=== PATIENT | female | born 1995 | race Caucasian/White ===

== ENCOUNTER → 2016-07-26 | Outpatient (REF) | payer OTHER ==
[~2016-07-26] MED LIST: CITA20TA4 PO; SYNT50TA PO; TRINTAB PO
== END ==
LOC: M LAB REF 16:15
PROVIDERS: ATTEND Physician Assistant
DX: J02.9 Acute pharyngitis, unspecified (principal)

== ENCOUNTER 2017-08-21 09:23 | Emergency (ER) | payer BC, OTHER ==
[2017-08-21] MEDS: METOCLOPRAMIDE INJ 10MG/2ML VIAL (J2765) IV (10:41)
[2017-08-21] MEDS: diphenhydrAMINE INJ 50MG/ML VIAL (J1200) IV (10:41)
[2017-08-21] MEDS: KETOROLAC 30 MG/ML VIAL (J1885) IV (11:00)
== END 2017-08-21 12:09 | disposition home or self-care (01) ==
LOC: M ED 09:23
DX: R51 Headache (principal); R20.2 Paresthesia of skin; E78.00 Pure hypercholesterolemia, unspecified; E03.9 Hypothyroidism, unspecified; Z79.899 Other long term (current) drug therapy
CPT/HCPCS: J1200

== ENCOUNTER → 2017-08-23 | Outpatient (REF) | payer BC | LOC: M LAB REF 19:11 | DX: N39.0 Urinary tract infection, site not specified (principal) ==

== ENCOUNTER → 2017-09-14 | Outpatient (CLI) | payer BC ==
[2017-09-14 19:27] LABS: TOTAL 25(OH) VITAMIN D 23.8 NG/ML (30.0-100.0)
[2017-09-14 19:32] LABS: BASO # 0.1 10^3/uL (0.0-0.2); BASO % 0.4 % (0.0-1.0); EOS # 0.5 10^3/uL (0.0-0.50); EOS % 4.2 % (0.0-3.0); HEMATOCRIT 38.9 % (36.0-47.0); HEMOGLOBIN 12.6 g/dl (12.0-15.5); IMMATURE GRANULOCYTE % 0.3 % (0-3.0); LYMPH # 3.4 10^3/uL (1.5-6.5); LYMPH % 27.6 % (24.0-44.0); MEAN CORPUSCULAR HEMOGLOBIN 28.5 pg (27.0-33.0); MEAN CORPUSCULAR HGB CONC 32.4 g/dl (32.0-36.5); MONO # 0.7 10^3/uL (0.0-0.8); MONO % 5.8 % (0.0-5.0); NEUTROPHILS # 7.6 10^3/uL (1.8-7.7); NEUTROPHILS % 61.7 % (36.0-66.0); PLATELET COUNT, AUTOMATED 369 10^3/uL (150-450); RED BLOOD COUNT 4.42 10^6/uL (4.00-5.40); RED CELL DISTRIBUTION WIDTH 13.2 % (11.5-14.5); WHITE BLOOD COUNT 12.4 10^3/uL (4.0-10.0)
[2017-09-14 19:47] LABS: ALBUMIN 3.5 GM/DL (3.2-5.2); ALBUMIN/GLOBULIN RATIO 0.95 (1.00-1.93); ALKALINE PHOSPHATASE 113 U/L (45-117); ALT/SGPT 117 U/L (12-78); ANION GAP 8 MEQ/L (8-16); AST/SGOT 50 U/L (7-37); BILIRUBIN,TOTAL 0.3 MG/DL (0.2-1.0); BLOOD UREA NITROGEN 15 MG/DL (7-18); CALCIUM LEVEL 8.9 MG/DL (8.5-10.1); CARBON DIOXIDE LEVEL 27 MEQ/L (21-32); CHLORIDE LEVEL 107 MEQ/L (98-107); CREATININE FOR GFR 0.83 MG/DL (0.55-1.30); GLOMERULAR FILTRATION RATE > 60.0 (>60); GLUCOSE, FASTING 120 MG/DL (70-100); POTASSIUM SERUM 4.1 MEQ/L (3.5-5.1); RHEUMATOID FACTOR QUANT < 10.0 IU/ML (<15.0); SODIUM LEVEL 142 MEQ/L (136-145); TOTAL PROTEIN 7.2 GM/DL (6.4-8.2)
[2017-09-14 20:31] LABS: ERYTHROCYTE SEDIMENTATION RATE 32 mm/hr (0-20)
[2017-09-16 14:33] LABS: ANTINUCLEAR ANTIBODIES DIRECT Negative (Negative)
== END ==
LOC: M WUC 17:48
DX: R51 Headache (principal)
CPT/HCPCS: 84443

== ENCOUNTER → 2017-11-15 | Outpatient (CLI) | payer BC ==
[2017-11-15 20:45] LABS: FREE T3 3.1 PG/ML (2.2-4.0); FREE T4 0.87 NG/DL (0.76-1.46); FREE THYROXINE INDEX 2.7 % (1.3-4.8); T UPTAKE 31 % (30-39); THYROXINE (T4) 8.6 UG/DL (4.5-12.0)
[2017-11-18 00:08] LABS: THYROID STIMULATING IMMUNOGLOB 0.93 IU/L (0.00-0.55)
== END ==
LOC: M WUC 14:36
DX: R94.6 Abnormal results of thyroid function studies (principal)
CPT/HCPCS: 84443

== ENCOUNTER 2018-07-08 00:51 | Emergency (ER) | payer BC, OTHER ==
[~2018-07-08] VITALS: Ht 149.9 cm; Wt 104.5 kg
[2018-07-08 00:51] VITALS: BP 140/93
[~2018-07-08 00:51] MED LIST changes: -CITA20TA4 PO; +CITA20TA6 PO; +CITA40TA4; +LEVO75TA4
[2018-07-08] MEDS ORDERED: TRUL10IN SC (00:56)
[2018-07-08] MEDS ORDERED: CYCLOBENZAPRINE 5MG TABLET PO ONE (01:30)
[2018-07-08] MEDS ORDERED: KETOROLAC 60 MG/2 ML VIAL (J1885) IM ONE (01:30)
[2018-07-08] MEDS ORDERED: IBUP-1022 PO (01:40)
[2018-07-08] MEDS ORDERED: CYCL5TAB PO (01:40)
== END 2018-07-08 01:47 | disposition home or self-care (01) ==
LOC: M ED 00:51
DX: S39.012A Strain of muscle, fascia and tendon of lower back, initial encounter (principal); X50.1XXA Overexertion from prolonged static or awkward postures, initial encounter; Y92.9 Unspecified place or not applicable; Y93.9 Activity, unspecified; Y99.9 Unspecified external cause status; E11.9 Type 2 diabetes mellitus without complications; G89.29 Other chronic pain; M54.9 Dorsalgia, unspecified; K21.9 Gastro-esophageal reflux disease without esophagitis; E03.9 Hypothyroidism, unspecified; E78.5 Hyperlipidemia, unspecified; Z87.440 Personal history of urinary (tract) infections; Z79.899 Other long term (current) drug therapy; Z88.8 Allergy status to other drugs, medicaments and biological substances
CPT/HCPCS: 81025; 96372; 99284; J1885